=== PATIENT | female | born 1980 | race Caucasian/White ===

== ENCOUNTER 2016-02-21 17:22 | Emergency (ER) | payer OTHER ==
[2016-02-21 17:35] VITALS: TEMP 97.9; BMI 27.8
[2016-02-21 17:53] LABS: AUTOMATED BASOPHIL 0.8 % (0-2); AUTOMATED EOSINOPHIL 0.8 % (0-5); AUTOMATED LYMPH 38.8 % (17-44); AUTOMATED MONOCYTE 6.7 % (3-10); AUTOMATED NEUTROPHIL 52.9 % (45-76)
[2016-02-21 18:02] LABS: LEUKOCYTES/URINE NEG (NEGATIVE); NITRITE/URINE NEG (NEGATIVE); RBC/URINE 0-2 (0-5); URINE OCCULT BLOOD NEG (NEG/TRACE); WBC/URINE 0-2 (0-5)
[2016-02-21 18:05] LABS: BLOOD UREA NITROGEN 10 MG/DL (7-17); CALCIUM 9.5 MG/DL (8.4-10.2); CALCULATED OSMOLALITY 268 MOs/Kg (270-290); CHLORIDE 102 mEq/L (98-107); GLUCOSE 104 MG/DL (70-99); SODIUM LEVEL 140 mEq/L (137-146); TOTAL PROTEIN 8.1 G/DL (6.3-8.2)
[2016-02-21 18:09] LABS: PARTIAL THROMB. TIME 24.7 SEC (22-35)
[2016-02-21] MEDS ORDERED: NS 1,000 ML IV ONE (18:47)
--- NOTE | 2016-02-21 18:47 | EDPRACDOC ---
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 PT DENIES ANY KNOWN EXAC/ AMEL FACTORS, STATES FEELS "A LITTLE" SOBR WITH HEART RACING, NO FEVER OR CHILLS , NO N/V/D. PT DENIES CP, COMPLAINS OF INTERMITTENT PAIN IN LEFT UPPER BACK "FOR A WHILE". Symptoms Started: Reports: Suddenly, At Rest Relevant History: Reports: None Heart Rate (bpm): 190 Pulse is: Rapid Worsens with: Reports: Nothing Associated signs & symptoms: Reports: None Chest Pain Location: Reports: No Pain ED Past Medical History - History Reviewed Yes Nurses notes reviewed and agree except as marked - Patient Medical History Psychological History: Denies: Depression Additional Past Medical History: SUPERFICIAL THROMBOPHLEBITIS - Social Medical History Smoking Status: Never smoker ETOH: None Substance Abuse: None EDM Review of Systems - Review of Systems Constitutional: negative: Chills, Fever, Fatigue, Weakness Eyes: negative: Blurred Vision, Double Vision Ears: negative: Drainage Throat: negative: Pain Nose: negative: Congestion, Discharge Respiratory: Shortness of Breath. negative: Cough, Wheezing Cardiovascular: Palpitations. negative: Chest Pain Gastrointestinal: negative: Diarrhea, Nausea, Pain, Vomiting Genitourinary: negative: Dysuria, Frequency Neurological: negative: Dizziness, Headache, Numbness, Weakness Musculoskeletal: No Symptoms Reported Integumentary: No Symptoms Reported - Physical Exam Constitutional: Alert (Awake), No apparent distress Oriented to: Time, Person, Place Last recorded Vital Signs: Last Vital Signs Temp 97.9 F 02/21/16 17:32 Pulse 92 02/21/16 17:32 Resp 20 02/21/16 17:32 BP 140/73 02/21/16 17:32 Pulse Ox 100 02/21/16 17:32 Oxygen Pulse Oxygen Saturation 100 O2 Device Room Air Oxygen Flow Rate Fraction of Inspired Oxygen ( FIO2) - HEENT Head: Normal ( normocephalic) Eye Exam: Normal (PERRL, EOMI, Sclera white) Oropharynx: Normal (Pharynx:Moist without exudate,Gums-no swelling) Tympanic Membrane: Normal ENT EAC: Normal TMJ: Normal Nose: No Symptoms Reported (septum midline) Neck: Normal (FROM, trachea at midline) - Respiratory/Cardiovascular Respiratory: Normal - CTA (BBS clear to auscultation without adventitious sounds ) Cardiovascular: Normal (RRR without murmur, gallop or rub) - GI Auscultation: Normal (NABS) Palpation: Normal (Soft,No rebound or guarding, non distended) Tenderness: Non tender Sam's Sign: Negative - Musculoskeletal Back: Normal (Non-Tender) Extremities: Normal (Normal tone, Pulses 2+ No cyanosis or edema, FROM) - Integumentary Skin: Normal, Warm, Dry Lymphatics: Normal (no adenopathy) - Neurologic Memory Impaired: Normal Motor Function: Normal (Normal tone, Pulses 2+ No cyanosis or edema, FROM) Cranial Nerve: Normal (CN II-X11 intact sensation, strength 5/5) Cerebellar: Normal Mood Description: Normal Perception: Normal - Differential Diagnosis Atrial fibrillation, Atrial flutter, Sinus tachycardia, Electrolyte disorder, Hyperthyroidism - Re-evaluation Re-evaluation 1 Re-evaluation Time: 20:22 (NO SIGNIFICANT ELEVATION OF HEART RATE WHILE IN ED) - Results 02/21/16 17:37 02/21/16 17:37 WBC 7.2 xk/uL (3.8-10.8) 02/21/16 17:37 RBC 4.44 xM/uL (4.20-5.40) 02/21/16 17:37 Hgb 13.2 g/dL (12.0-16.0) 02/21/16 17:37 Hct 39.3 % (36-47) 02/21/16 17:37 MCV 89 fL (81-99) 02/21/16 17:37 MCH 29.8 pg (27-32) 02/21/16 17:37 MCHC 33.6 g/dl (33-36) 02/21/16 17:37 RDW 13.0 % (11.5-14.5) 02/21/16 17:37 Plt Count 200 xk/uL (130-400) 02/21/16 17:37 MPV 11.0 fL (7.4-10.4) H 02/21/16 17:37 Neut % (Auto) 52.9 % (45-76) 02/21/16 17:37 Lymph % (Auto) 38.8 % (17-44) 02/21/16 17:37 [place] % (Auto) 6.7 % (3-10) 02/21/16 17:37 Eos % (Auto) 0.8 % (0-5) 02/21/16 17:37 Baso % (Auto) 0.8 % (0-2) 02/21/16 17:37 Absolute Neuts (auto) 3.74 xk/uL (1.7-8.2) 02/21/16 17:37 Absolute Lymphs (auto) 2.74 xk/uL (0.65-4.75) 02/21/16 17:37 PT 10.5 SEC (9.2-11.2) 02/21/16 17:37 INR 1.0 02/21/16 17:37 APTT 24.7 SEC (22-35) 02/21/16 17:37 Sodium 140 mEq/L (137-146) 02/21/16 17:37 Potassium 3.7 mEq/L (3.5-5.1) 02/21/16 17:37 Chloride 102 mEq/L (98-107) 02/21/16 17:37 Carbon Dioxide 23 mMOL/L (22-33) 02/21/16 17:37 Anion Gap 19 mEq/L (8-16) H 02/21/16 17:37 BUN 10 MG/DL (7-17) 02/21/16 17:37 Creatinine 0.60 MG/DL (0.52-1.04) 02/21/16 17:37 Estimated GFR (MDRD) > 60 mL/min (>=60) 02/21/16 17:37 Glucose 104 MG/DL (70-99) H 02/21/16 17:37 Calculated Osmolality 268 MOs/Kg (270-290) L 02/21/16 17:37 Calcium 9.5 MG/DL (8.4-10.2) 02/21/16 17:37 Total Bilirubin 0.5 MG/DL (0.2-1.3) 02/21/16 17:37 AST 23 IU/L (14-36) 02/21/16 17:37 ALT 28 IU/L (9-52) 02/21/16 17:37 Alkaline Phosphatase 53 IU/L (38-126) 02/21/16 17:37 Troponin I < 0.01 ng/mL (<.04) 02/21/16 17:37 Lwo-B-Zscdfcgtjym Pept 134 pg/mL (0-450) 02/21/16 17:37 Total Protein 8.1 G/DL (6.3-8.2) 02/21/16 17:37 Albumin 4.7 G/DL (3.5-5.0) 02/21/16 17:37 Urine Color Yellow 02/21/16 17:37 Urine Clarity Clear 02/21/16 17:37 Urine pH 6.0 (5.0-8.0) 02/21/16 17:37 Ur Specific [place] 1.025 (1.003-1.035) 02/21/16 17:37 Urine Protein Neg (NEG/TRACE) 02/21/16 17:37 Urine Glucose (UA) Neg (NEGATIVE) 02/21/16 17:37 Urine Ketones 1+ (NEGATIVE) H 02/21/16 17:37 Urine Occult Blood Neg (NEG/TRACE) 02/21/16 17:37 Urine Nitrite Neg (NEGATIVE) 02/21/16 17:37 Urine Bilirubin Neg (NEGATIVE) 02/21/16 17:37 Urine Urobilinogen <2.0 MG/DL (0-1) 02/21/16 17:37 Ur Leukocyte Esterase Neg (NEGATIVE) 02/21/16 17:37 Urine RBC 0-2 (0-5) 02/21/16 17:37 Urine WBC 0-2 (0-5) 02/21/16 17:37 Ur Epithelial Cells 1+ 02/21/16 17:37 Urine Mucus Occ (NEG/OCC) 02/21/16 17:37 Lab Results 02/21/16 02/21/16 02/21/16 17:37 17:37 17:37 WBC 7.2 RBC 4.44 Hgb 13.2 Hct 39.3 MCV 89 MCH 29.8 MCHC 33.6 RDW 13.0 Plt Count 200 MPV 11.0 H Neut % (Auto) 52.9 Lymph % (Auto) 38.8 [place] % (Auto) 6.7 Eos % (Auto) 0.8 Baso % (Auto) 0.8 Absolute Neuts (auto) 3.74 Absolute Lymphs (auto) 2.74 PT 10.5 INR 1.0 APTT 24.7 Sodium Potassium Chloride Carbon Dioxide Anion Gap BUN Creatinine Estimated GFR (MDRD) Glucose Calculated Osmolality Calcium Total Bilirubin AST ALT Alkaline Phosphatase Troponin I [id number]-Pmrmaktwurj Pept Total Protein Albumin Urine Color Yellow Urine Clarity Clear Urine pH 6.0 Ur Specific [place] 1.025 Urine Protein Neg Urine Glucose (UA) Neg Urine Ketones 1+ H Urine Occult Blood Neg Urine Nitrite Neg Urine Bilirubin Neg Urine Urobilinogen <2.0 Ur Leukocyte Esterase Neg Urine RBC 0-2 Urine WBC 0-2 Ur Epithelial Cells 1+ Urine Mucus Occ 02/21/16 17:37 WBC RBC Hgb Hct MCV MCH MCHC RDW Plt Count MPV Neut % (Auto) Lymph % (Auto) [place] % (Auto) Eos % (Auto) Baso % (Auto) Absolute Neuts (auto) Absolute Lymphs (auto) PT INR APTT Sodium 140 Potassium 3.7 Chloride 102 Carbon Dioxide 23 Anion Gap 19 H BUN 10 Creatinine 0.60 Estimated GFR (MDRD) > 60 Glucose 104 H Calculated Osmolality 268 L Calcium 9.5 Total Bilirubin 0.5 AST 23 ALT 28 Alkaline Phosphatase 53 Troponin I < 0.01 Hvt-[id number]-Bicwqabptpl Pept 134 Total Protein 8.1 Albumin 4.7 Urine Color Urine Clarity Urine pH Ur Specific [place] Urine Protein Urine Glucose (UA) Urine Ketones Urine Occult Blood Urine Nitrite Urine Bilirubin Urine Urobilinogen Ur Leukocyte Esterase Urine RBC Urine WBC Ur Epithelial Cells Urine Mucus - EKG EKG #1 Initial EKG Time: 17:30 -: Yes EKG interpreted by me Rate: bpm: 102 [place]: Normal Rhythm: ST Block: None Hypertrophy: None ST: Normal Comments: NO OLD EKG FOR COMPARISON - Diagnostic Imaging CTA CHEST Image interpreted by: Radiologist CT ANGIOGRAPHY CHEST WITH CONTRAST TECHNIQUE: Multidetector CT imaging of the chest was performed using the standard protocol during bolus administration of intravenous contrast. Multiplanar CT image reconstructions and MIPs were obtained to evaluate the vascular anatomy. CONTRAST: 80 mL Isovue 370 IV COMPARISON: Chest radiograph earlier this day. FINDINGS: There are no filling defects within the pulmonary arteries to suggest pulmonary embolus. Thoracic aorta is normal in caliber. No dissection. Heart is normal in size. No mediastinal or hilar adenopathy. No pleural or pericardial effusion. Small axillary lymph nodes, not enlarged by size criteria. The lungs are clear. There is no consolidation, pulmonary nodule or mass. No pulmonary edema. No acute abnormality in the included upper abdomen. Postcholecystectomy change noted. There are no acute or suspicious osseous abnormalities. Review of the MIP images confirms the above findings. IMPRESSION: No pulmonary embolus or acute intrathoracic findings. Decision Time to Discharge: 20:23 - Departure Disposition: Home Condition: Stable Final Diagnosis: Palpitations Instructions: Palpitations (ED) Education/Counseling Given To: Patient Education/Counseling Given Regarding: Diagnosis, Treatment, Prognosis, Follow Up Referrals: Alvaro Cardoza MD [Staff Physician] - One Week Additional Instructions: REST, DRINK PLENTY OF FLUIDS, DECREASED CAFFEINE INTAKE, RETURN TO THE ED FOR ANY WORSENING SYMPTOMS OR CONCERNS.
--- NOTE | 2016-02-21 18:57 | DIRPT ---
CLINICAL DATA: Intermittent heart racing. Intermittent chest pain. EXAM: PORTABLE CHEST 1 VIEW COMPARISON: None. FINDINGS: Normal cardiac silhouette and mediastinal contours. No focal parenchymal opacities. No pleural effusion or pneumothorax. No evidence of edema. No acute osseus abnormalities. Post cholecystectomy. IMPRESSION: No acute cardiopulmonary disease on this AP portable examination. Electronically Signed By: Puma Lee M.D. On: 02/21/2016 18:55
[2016-02-21] MEDS ORDERED: Pharmacy Review for Metformin - IV Contrast Given SCH (19:00)
--- NOTE | 2016-02-21 20:02 | DIRPT ---
CLINICAL DATA: Palpitations and shortness of breath. EXAM: CT ANGIOGRAPHY CHEST WITH CONTRAST TECHNIQUE: Multidetector CT imaging of the chest was performed using the standard protocol during bolus administration of intravenous contrast. Multiplanar CT image reconstructions and MIPs were obtained to evaluate the vascular anatomy. CONTRAST: 80 mL Isovue 370 IV COMPARISON: Chest radiograph earlier this day. FINDINGS: There are no filling defects within the pulmonary arteries to suggest pulmonary embolus. Thoracic aorta is normal in caliber. No dissection. Heart is normal in size. No mediastinal or hilar adenopathy. No pleural or pericardial effusion. Small axillary lymph nodes, not enlarged by size criteria. The lungs are clear. There is no consolidation, pulmonary nodule or mass. No pulmonary edema. No acute abnormality in the included upper abdomen. Postcholecystectomy change noted. There are no acute or suspicious osseous abnormalities. Review of the MIP images confirms the above findings. IMPRESSION: No pulmonary embolus or acute intrathoracic findings. Electronically Signed By: Gabi Allen M.D. On: 02/21/2016 19:59
[2016-02-21 21:15] VITALS: BP 109/58; PULSE 81
== END 2016-02-21 21:12 | disposition home or self-care (01) ==
LOC: ED 17:22
DX: R00.2 Palpitations (principal); R06.02 Shortness of breath
CPT/HCPCS: 36415; 71010; 71275; 80053; 81001; 83880; 84443; 84484; 85025; 85610; 85730; 96360; 99284; A9698